=== PATIENT | female | born 1930 | race Caucasian/White ===

== ENCOUNTER 2016-07-17 19:52 | Inpatient (IN) | payer MEDICARE, OTHER ==
[~2016-07-17] VITALS: Ht 162.6 cm; Wt 59.0 kg
[2016-07-17] MEDS ORDERED: ASPIRIN81 MG GT (21:59)
[2016-07-17] MEDS ORDERED: FISH OIL 500 M1 EAC1 GT (22:00)
[2016-07-17] MEDS ORDERED: DONEPEZIL HCL10 MG GT (22:00)
[2016-07-17] MEDS ORDERED: CLARITIN 10MG T10 MG GT (22:01)
[2016-07-17] MEDS ORDERED: FUROSEMIDE20 MG GT (22:01)
[2016-07-17] MEDS ORDERED: DAILY MULTIPLE1 EAC1 GT (22:02)
[2016-07-17] MEDS ORDERED: SINGULAIR10 MG GT (22:02)
[2016-07-17] MEDS ORDERED: POTASSIUM CHLO10 ME2 GT (22:05)
[2016-07-17] MEDS ORDERED: ZOLOFT25 MG GT (22:06)
[2016-07-17] MEDS ORDERED: DEPAKOTE125 MG GT (22:08)
[2016-07-17] MEDS ORDERED: COLACE 100MG C100 MG GT (22:09)
[2016-07-17] MEDS ORDERED: FEOSOL ELI220 MG/5 M GT (22:10)
[2016-07-17] MEDS ORDERED: LEVALBUTER1.25 MG/3 INH (22:11)
[2016-07-17] MEDS ORDERED: NAMENDA10 MG GT (22:12)
[2016-07-17] MEDS ORDERED: VITAMIN B-1000 MCG/M IM ×2 (22:14→22:15)
[2016-07-17] MEDS ORDERED: IBUPROFEN600 MG GT (22:16)
[2016-07-17] MEDS ORDERED: DULCOLAX10 MG PR (22:16)
[2016-07-17] MEDS ORDERED: SENNA LAX8.6 MG GT (22:17)
[2016-07-17] MEDS ORDERED: ATIVAN0.5 MG GT (22:17)
[2016-07-17] MEDS ORDERED: ULTRAM50 MG GT (22:18)
[2016-07-17] MEDS ORDERED: ZADITOR5 ML OU (22:19)
[2016-07-18 04:49] LABS: BUN/CREATININE RATIO 47 (0-10)
[2016-07-18 05:17] LABS: RED BLOOD COUNT 3.18 M/UL (4.00-5.10); WHITE BLOOD COUNT 7.5 K/UL (4.5-11.0)
--- NOTE | 2016-07-18 19:56 | NUR ---
1952- ATTEMPTED TO CALL REPORT TO SUHAS RAMIREZ ON [facility], COULD NOT TAKE REPORT AT THIS TIME. WILL RETURN CALL.
[2016-07-19 06:02] LABS: RED BLOOD COUNT 3.13 M/UL (4.00-5.10)
[2016-07-19 06:16] LABS: BUN/CREATININE RATIO 40 (0-10)
[2016-07-20 05:41] LABS: HEMOGLOBIN 8.8 gm/dl (12.3-15.3); RED BLOOD COUNT 3.11 M/UL (4.00-5.10)
[2016-07-20 05:47] LABS: WHITE BLOOD COUNT 8.9 K/UL (4.5-11.0)
[2016-07-20 05:59] LABS: BUN/CREATININE RATIO 28 (0-10)
== END 2016-07-22 18:13 | DRG 378 ==
LOC: CCU 19:52 → M/S 21:50 → CCU 07-18 06:00 → M/S 07-18 20:22
PROVIDERS: Internal Medicine; Internal Medicine Gastroenterology; ADMIT Internal Medicine
PROC: 0DJ08ZZ Inspection of Upper Intestinal Tract, Via Natural or Artificial Opening Endoscopic (ICD-10-PCS; principal; 2016-07-22 12:15)
DX: K29.71 Gastritis, unspecified, with bleeding (principal); E44.0 Moderate protein-calorie malnutrition; N17.9 Acute kidney failure, unspecified; K22.10 Ulcer of esophagus without bleeding; K56.60 Unspecified intestinal obstruction; E86.0 Dehydration; F03.90 Unspecified dementia, unspecified severity, without behavioral disturbance, psychotic disturbance, mood disturbance, and anxiety; I10 Essential (primary) hypertension; I25.10 Atherosclerotic heart disease of native coronary artery without angina pectoris; Z66 Do not resuscitate; K59.00 Constipation, unspecified; E87.6 Hypokalemia; D50.9 Iron deficiency anemia, unspecified; Z68.21 Body mass index [BMI] 21.0-21.9, adult; N20.0 Calculus of kidney; D63.8 Anemia in other chronic diseases classified elsewhere; K44.9 Diaphragmatic hernia without obstruction or gangrene; K27.9 Peptic ulcer, site unspecified, unspecified as acute or chronic, without hemorrhage or perforation
CPT/HCPCS: ECHO; 36415; 74000; 80048; 80053; 81001; 83735; 84100; 85025; 85027; 93306; 94640; 94664; 97110; 97530; C9113; J2250; J2405; J7030; J7040; Q0162